=== PATIENT | male | born 1980 | race Hispanic/Latino ===

== ENCOUNTER 2020-09-08 15:44 | Inpatient (IN) | payer SELFPAY ==
[~2020-09-08] VITALS: Ht 170.2 cm; Wt 90.7 kg
[2020-09-08] MEDS ORDERED: SODIUM CHLORIDE 0.9% 1000ML 1,000 ML IV ONE (17:18)
[2020-09-08] MEDS ORDERED: ZOSYN 3.375GM+NS 50ML 50 ML IV ONE (17:19)
[2020-09-08 17:31] LABS: BASOPHILS % (AUTO) 0.5 % (0.0-5.0); EOSINOPHILS % (AUTO) 0.1 % (0.0-8.0); LYMPHOCYTES % (AUTO) 12.6 % (21.0-51.0); MEAN CORPUSCULAR HEMOGLOBIN 30.3 pg (27.0-33.0); MEAN CORPUSCULAR HGB CONC 34.5 g/dL (32.0-36.0); MEAN CORPUSCULAR VOLUME 87.9 fL (79-99); MONOCYTES % (AUTO) 7.2 % (3.0-13.0); PLATELET COUNT (AUTO) 282 K/uL (130-400); RED BLOOD CELL COUNT(AUTO) 5.35 MIL/uL (4.50-6.20); RED CELL DISTRIBUTION WIDTH 12.1 % (11.0-15.5); WHITE BLOOD COUNT (AUTO) 17.2 K/uL (4.8-10.8)
[2020-09-08 17:56] LABS: CREATININE 0.9 mg/dL (0.5-1.5); POTASSIUM 3.5 mmol/L (3.5-5.1)
[2020-09-08 18:01] LABS: ALBUMIN 3.8 g/dL (3.5-5.0); BILIRUBIN,TOTAL 0.5 mg/dL (0.2-1.0); TOTAL PROTEIN, SERUM 8.4 g/dL (6.0-8.3)
[2020-09-08] MEDS ORDERED: IOHEXOL-350 75 ML VIAL IV ONE (18:07)
[2020-09-08 18:38] LABS: APPEARANCE,URINE Clear (CLEAR); BILIRUBIN,URINE Negative (NEGATIVE); COLOR,URINE Yellow (YELLOW); GLUCOSE, URINE (UA) Negative (NEGATIVE); KETONES,URINE Negative (NEGATIVE); LEUKOCYTE ESTERASE ,URINE Negative (NEGATIVE); NITRATE,URINE Negative (NEGATIVE); OCCULT BLOOD,URINE Trace (NEGATIVE); PH,URINE 7.5 (5.0-8.0); PROTEIN,URINE Negative (NEGATIVE)
[2020-09-08 19:10] LABS: BACTERIA,URINE Rare /HPF (None Seen); SQUAMOUS EPITHELIAL CELL,UR Rare /HPF (0-2); WBC,URINE 0-1 /HPF (0-1)
[2020-09-08] MEDS ORDERED: MORPHINE SULFATE 4 MG/1ML SYG ONE (19:26)
[2020-09-08] MEDS ORDERED: KETOROLAC TROMETHAMINE 30MG/ML ONE (19:26)
[2020-09-08] MEDS ORDERED: MORPHINE SULFATE 2 MG/ML 1ML SYG IV PRN (21:15)
[2020-09-08] MEDS ORDERED: ONDANSETRON HCL 4 MG/2 ML VIAL IV PRN (21:15)
[2020-09-08] MEDS ORDERED: LACTATED RINGERS 1000ML 1,000 ML IV ONE (21:59)
[2020-09-08] MEDS ORDERED: FAMOTIDINE/PF 20 MG/2 ML VIAL IV ONE (21:59)
[2020-09-08 22:53] LABS: INR 1.18 (0.85-1.15); PROTHROMBIN TIME 12.4 SEC (9.6-11.6)
[2020-09-08 22:54] LABS: PARTIAL THROMBOPLASTIN TIME 30.8 SEC (26.3-35.5)
[2020-09-08] MEDS ORDERED: MORPHINE SULFATE 2 MG/ML 1ML SYG ONE (23:42)
[2020-09-09] VITALS (22 sets, daily range): BP systolic 120–149; BP diastolic 73–90
[2020-09-09] MEDS ORDERED: MORPHINE SULFATE 2 MG/ML 1ML SYG ONE ×3 (02:44→14:53)
[2020-09-09] MEDS ORDERED: ZOSYN 3.375GM+NS 50ML 50 ML IV ONE ×2 (05:21→09:47)
[2020-09-09] MEDS ORDERED: ONDANSETRON HCL 4 MG/2 ML VIAL ONE ×2 (05:29→17:05)
[2020-09-09 06:41] LABS: BASOPHILS % (AUTO) 0.5 % (0.0-5.0); EOSINOPHILS % (AUTO) 0.6 % (0.0-8.0); HEMATOCRIT 42.1 % (42-54); LYMPHOCYTES % (AUTO) 17.3 % (21.0-51.0); MEAN CORPUSCULAR HEMOGLOBIN 30.1 pg (27.0-33.0); MEAN CORPUSCULAR HGB CONC 34.2 g/dL (32.0-36.0); MEAN CORPUSCULAR VOLUME 88.1 fL (79-99); MONOCYTES % (AUTO) 10.9 % (3.0-13.0); NEUTROPHILS % (AUTO) 69.9 % (40.0-77.0); PLATELET COUNT (AUTO) 258 K/uL (130-400); RED BLOOD CELL COUNT(AUTO) 4.78 MIL/uL (4.50-6.20); WHITE BLOOD COUNT (AUTO) 14.4 K/uL (4.8-10.8)
[2020-09-09] MEDS ORDERED: MORPHINE SULFATE 2 MG/ML 1ML SYG IVP PRN (07:15)
[2020-09-09 07:27] LABS: ALANINE AMINOTRANSFERASE 22 U/L (12-78); ALBUMIN 3.1 g/dL (3.5-5.0); ASPARTATE AMINOTRANSFERASE 16 U/L (10-37); CARBON DIOXIDE 24 mmol/L (21-32); CHLORIDE 100 mmol/L (101-111); CREATININE 0.8 mg/dL (0.5-1.5); GLOMERULAR FILTR. RATE CALC 113 mL/min (>60); GLUCOSE,RANDOM 85 mg/dL (70-105); POTASSIUM 3.2 mmol/L (3.5-5.1); SODIUM SERUM 136 mmol/L (136-145); TOTAL PROTEIN, SERUM 7.2 g/dL (6.0-8.3); UREA NITROGEN, BLOOD 8 mg/dL (7-18)
[2020-09-09] MEDS: FAMOTIDINE/PF 20 MG/2 ML VIAL IV SCH ×2 (09:00→22:10)
[2020-09-09] MEDS ORDERED: FAMOTIDINE/PF 20 MG/2 ML VIAL IV ONE (09:48)
[2020-09-09] MEDS ORDERED: SUCCINYLCHOLINE 200MG/10ML SYR ONE (17:04)
[2020-09-09] MEDS ORDERED: MIDAZOLAM HCL 1 MG/ML 2ML VIAL ONE (17:04)
[2020-09-09] MEDS ORDERED: PROPOFOL 10 MG/ML 20ML VIAL IV ONE (17:04)
[2020-09-09] MEDS ORDERED: LIDOCAINE PF 2% 5ML ABBOJECT ONE (17:04)
[2020-09-09] MEDS ORDERED: ROCURONIUM 10MG/1ML SYR 10 MG/ML ML ONE (17:05)
[2020-09-09] MEDS ORDERED: FENTANYL CITRATE PF 50 MCG/1 ML 2ML VIAL ONE (17:05)
[2020-09-09] MEDS ORDERED: DEXAMETHASONE SOD PHOSPHATE 4 MG/ML 1ML VIAL ONE (17:17)
[2020-09-09] MEDS ORDERED: BUPIVACAINE/PF 0.25% 30ML VIAL IJ ONE (17:40)
[2020-09-09] MEDS ORDERED: LIDOCAINE HCL 1% 20 ML VIAL ONE (17:40)
[2020-09-09] MEDS ORDERED: METOCLOPRAMIDE 10 MG/2 ML VIAL ONE (18:08)
[2020-09-09] MEDS: ZOSYN 3.375GM+NS 50ML 50 ML IV SCH ×2 (18:30→19:03)
[2020-09-09] MEDS ORDERED: IBUP-2077 PO (20:37)
[2020-09-09] MEDS: LACTATED RINGERS 1000ML 1,000 ML IV SCH (22:11)
[2020-09-09] MEDS: OXYCODONE/ACETAMIN 5/325MG TAB PO PRN (22:18)
[2020-09-10] MEDS: ZOSYN 3.375GM+NS 50ML 50 ML IV SCH ×2 (02:25→10:23)
[2020-09-10] MEDS: LACTATED RINGERS 1000ML 1,000 ML IV SCH (03:15)
[2020-09-10 04:00] VITALS: BP 102/69
[2020-09-10] MEDS: OXYCODONE/ACETAMIN 5/325MG TAB PO PRN ×2 (04:30→10:24)
[2020-09-10 06:14] LABS: BASOPHILS % (AUTO) 0.2 % (0.0-5.0); HEMATOCRIT 44.1 % (42-54); LYMPHOCYTES % (AUTO) 10.9 % (21.0-51.0); MEAN CORPUSCULAR HEMOGLOBIN 30.2 pg (27.0-33.0); MEAN CORPUSCULAR HGB CONC 33.8 g/dL (32.0-36.0); MEAN CORPUSCULAR VOLUME 89.3 fL (79-99); NEUTROPHILS % (AUTO) 82.2 % (40.0-77.0); PLATELET COUNT (AUTO) 285 K/uL (130-400); RED BLOOD CELL COUNT(AUTO) 4.94 MIL/uL (4.50-6.20); RED CELL DISTRIBUTION WIDTH 11.9 % (11.0-15.5); WHITE BLOOD COUNT (AUTO) 16.2 K/uL (4.8-10.8)
[2020-09-10 06:34] LABS: ALANINE AMINOTRANSFERASE 24 U/L (12-78); ASPARTATE AMINOTRANSFERASE 11 U/L (10-37); BILIRUBIN,TOTAL 0.7 mg/dL (0.2-1.0); CARBON DIOXIDE 28 mmol/L (21-32); CHLORIDE 100 mmol/L (101-111); CREATININE 0.9 mg/dL (0.5-1.5); GLOMERULAR FILTR. RATE CALC 99 mL/min (>60); GLUCOSE,RANDOM 108 mg/dL (70-105); POTASSIUM 4.2 mmol/L (3.5-5.1); SODIUM SERUM 136 mmol/L (136-145); TOTAL PROTEIN, SERUM 7.5 g/dL (6.0-8.3); UREA NITROGEN, BLOOD 12 mg/dL (7-18)
[2020-09-10 07:30] VITALS: BP 111/72
[2020-09-10] MEDS: FAMOTIDINE/PF 20 MG/2 ML VIAL IV SCH (10:23)
[2020-09-10] MEDS ORDERED: DOXY100T2 PO (10:55)
[2020-09-10] MEDS ORDERED: ACET1TAB25 PO (10:55)
[2020-09-10] MEDS ORDERED: AMOX-429 PO (10:55)
[2020-09-10 11:00] VITALS: BP 124/75
== END 2020-09-10 12:30 | disposition home or self-care (01) | DRG 872 ==
LOC: EDH 15:44 → EDHIP 15:45 → 3CH 09-09 15:54
PROVIDERS: ADMIT Hospitalist; ATTEND Hospitalist
DX: A41.9 Sepsis, unspecified organism (principal); K61.1 Rectal abscess; Z68.31 Body mass index [BMI] 31.0-31.9, adult; E66.9 Obesity, unspecified; K76.0 Fatty (change of) liver, not elsewhere classified; M54.10 Radiculopathy, site unspecified; Z20.828 Contact with and (suspected) exposure to other viral communicable diseases; I10 Essential (primary) hypertension; F17.210 Nicotine dependence, cigarettes, uncomplicated; K59.00 Constipation, unspecified; K62.89 Other specified diseases of anus and rectum; Z83.3 Family history of diabetes mellitus; Z82.49 Family history of ischemic heart disease and other diseases of the circulatory system
CPT/HCPCS: 36415; 74177; 80053; 81001; 83605; 83735; 84145; 85025; 85610; 85730; 87040; 87070; 87076; 87077; 87186; 87205; 87426; A4606; G0378; J0330; J1100; J1885; J2001; J2250; J2270; J2405; J2543; J2704; J2765; J3010; J3490; J7030; J7120; Q9967; U0003